=== PATIENT | female | born 1960 | race Caucasian/White ===

== ENCOUNTER 2018-04-14 13:58 | Outpatient (CLI) | payer OTHER | END 2018-04-14 13:59 | disposition home or self-care (01) | LOC: BICMAMMO 13:58 | PROVIDERS: ATTEND Obstetrics & Gynecology | DX: Z12.31 Encounter for screening mammogram for malignant neoplasm of breast (principal) | CPT/HCPCS: 77063; 77067 ==

== ENCOUNTER 2020-11-21 11:11 | Outpatient (CLI) | payer OTHER ==
--- NOTE | 2020-11-21 11:29 | BD ---
EXAM: Bone densitometry using DEXA HISTORY: 59 yo female. Screening for postmenopausal osteoporosis FINDINGS: L1--bone mineral density 0.750 g/sq cm; T score -2.2 ; Z score -1.0 L2--bone mineral density 0.838 g/sq cm; T score -1.7 ; Z score -0.4 L3--bone mineral density 0.884 g/sq cm; T score -1.8 ; Z score -0.4 L4--bone mineral density 0.861 g/sq cm; T score -1.8 ; Z score -0.4 Total L1-L4--bone mineral density 0.838 g/sq cm; T score -1.9 ; Z score -0.6 Left femoral neck--bone mineral density0.640; T score -1.9 ; Z score -0.6 Total proximal left femur--bone mineral density 0.833; T score -2.9 ; Z score 0.0 The 10 year fracture risk for a major osteoporotic fracture is 9.0% and for a hip fracture is 1.6%. IMPRESSION: Osteopenia
== END 2020-11-21 11:12 | disposition home or self-care (01) ==
LOC: BICMAMMO 11:11
PROVIDERS: ATTEND Family Medicine
DX: Z13.820 Encounter for screening for osteoporosis (principal); Z78.0 Asymptomatic menopausal state; M85.89 Other specified disorders of bone density and structure, multiple sites
CPT/HCPCS: 77080